=== PATIENT | male | born 1995 | race African-American/Black ===

== ENCOUNTER 2016-07-30 19:20 | Emergency (ER) | payer SELFPAY ==
[~2016-07-30] VITALS: Ht 180.3 cm; Wt 67.9 kg
[~2016-07-30 19:20] MED LIST: OXYCODONE HCL5 MG PO; ZOFRAN ODT8 MG PO
[2016-07-30 21:08] LABS: CHLORIDE 102 mEq/L (99-109); POTASSIUM 3.8 mEq/L (3.7-5.4); SODIUM 140 mEq/L (136-147)
[2016-07-30 21:10] LABS: GLUCOSE 96 mg/dL (70-99)
[2016-07-30 21:11] LABS: ANION GAP 18 MEQ/L (2-14)
[2016-07-30 21:13] LABS: ALKALINE PHOSPHATASE 160 IU/L (3-129)
[2016-07-30 21:14] LABS: GFR ESTIMATE (CALCULATED) > 59 mL/min/
[2016-07-30 21:15] LABS: UREA NITROGEN (BUN) 23 mg/dL (9-23)
[2016-07-30 21:27] LABS: HEMATOCRIT 44.1 % (38.0-50.0); MCH 31.4 PG (29.0-34.0); MCHC 37.2 G/DL (30.0-36.0); MCV 84.5 FL (86-99); MEAN PLAT.VOLUME 10.5 uM^3 (9.0-12.4); PLATELET COUNT 309 K/uL (156-360); RBC DIS.WIDTH-CV 13.5 % (11.8-14.6); RED BLOOD COUNT 5.22 M/uL (4.00-5.50); WHITE BLOOD COUNT 19.1 K/uL (4.1-10.2)
[2016-07-30 22:00] LABS: ADD MIUA? YES; BILIRUBIN NEGATIVE; BLOOD NEGATIVE; COLOR YELLOW ((YELLOW)); GLUCOSE (STRIP) NEGATIVE; KETONES >=80; LEUKOCYTES NEGATIVE; NITRITE NEGATIVE; PROTEIN (STRIP) 100; UROBILINOGEN 0.2 MG/DL (0.2-1.0)
[2016-07-30] MEDS ORDERED: ZOFRAN ODT4 MG PO (22:19)
[2016-07-30 22:43] LABS: BACTERIA RARE; CASTS NONE SEEN /LPF; CRYSTALS NONE SEEN; EPITHELIAL CELLS NONE SEEN; MUCUS 2+; RED BLOOD CELLS NONE SEEN /HPF (0-5); UCUL ADDED? NO; WHITE BLOOD CELLS NONE SEEN /HPF (0-5)
[2016-07-30 23:20] VITALS: BP 136/88
== END 2016-07-30 23:20 | disposition home or self-care (01) ==
LOC: EME 19:20 → EXP 19:20
DX: T46.7X1A Poisoning by peripheral vasodilators, accidental (unintentional), initial encounter (principal); R11.2 Nausea with vomiting, unspecified
CPT/HCPCS: 80053; 81003; 85027; 99281; 99284